=== PATIENT | male | born 1985 | race Caucasian/White ===

== ENCOUNTER 2016-12-15 09:15 | Emergency (ER) | payer SELFPAY ==
[2016-12-15 09:26] VITALS: TEMP 98.6; BMI 27.2
[2016-12-15] MEDS ORDERED: METHYLPREDNISOLONE 125 MG/2 ML VIAL IM ONE (09:36)
[2016-12-15] MEDS ORDERED: Albuterol/Ipratropium Neb 3 ML NEB NEB ONE (09:36)
--- NOTE | 2016-12-15 10:05 | EDPRACDOC ---
- General Information Chief Complaint: Flu-Like Symptoms Stated Complaint: COUGH Time Seen by Provider: 12/15/16 09:27 Information Source: Patient Mode Of Arrival: Car Home Medications: Home Medications Acetaminophen with Codeine [TYLENOL WITH CODEINE; [employer] with Codeine] 5 ml PO Q4-6H PRN #120 ml 12/15/16 Albuterol Sulfate [Proventil Hfa] 1 - 2 puff INH Q4H PRN #1 each 12/15/16 Prednisone [Deltasone, Orasone] 2 tabs PO DAILY #20 tab 12/15/16 Allergies/Adverse Reactions: Allergies Allergy/AdvReac Type Severity Reaction Status Date / Time ceftriaxone sodium Allergy Unknown Verified 12/15/16 09:26 [From Rocephin] - History of Present Illness Symptoms Started: 2 WEEKS HPI: PT PRESENTS TODAY WITH COUGH/CONGESTION, SHOB, POST-TUSSIVE VOMITING X 2 WEEKS. NO FEVER. PMH OF ASTHMA, BUT DOES NOT USE INHALER AND CONTINUES TO SMOKE. NO APPARENT DISTRESS. Symptoms: Reports: Cough, Nasal Symptoms, Vomiting Recent Medications: Reports: None Relevant History Of: Reports: Asthma Shortness of Breath: Moderate Cough Frequency: Persistent Cough Description: Reports: Productive, Strong, Congested Ear Symptoms: Reports: None Associated Signs and Symptoms: Reports: Cough, Nasal Symptoms, Vomiting ED Past Medical History - History Reviewed Yes Nurses notes reviewed and agree except as marked - Patient Medical History Respiratory History: Reports: Asthma (reports childhood asthma that has resolved ) Psychological History: Denies: Depression Systemic History: Denies: Cancer - Social Medical History Smoking Status: Heavy tobacco smoker (5 or more cigarettes/day or daily pipe/ cigar) EDM Review of Systems - Review of Systems ROS Negative Except as Marked: Yes All systems reviewed and were negative except as marked Constitutional: No Symptoms Reported Ears: No Symptoms Reported Throat: No Symptoms Reported Nose: Congestion Respiratory: Cough, Shortness of Breath, Wheezing Cardiovascular: No Symptoms Reported Gastrointestinal: Vomiting Genitourinary: No Symptoms Reported Neurological: No Symptoms Reported Musculoskeletal: Chestwall (PAIN D/T COUGHING) Integumentary: No Symptoms Reported - Physical Exam Constitutional: Alert (Awake), No apparent distress Oriented to: Time, Person, Place Last recorded Vital Signs: Last Vital Signs Temp 98.6 F 12/15/16 09:24 Pulse 80 01/21/17 09:24 Resp 20 12/15/16 09:24 BP 138/69 12/15/16 09:24 Pulse Ox 98 12/15/16 09:24 Oxygen Pulse Oxygen Saturation 98 O2 Device Room Air Oxygen Flow Rate Fraction of Inspired Oxygen ( FIO2) - HEENT Head: Normal Eye Exam: Normal Oropharynx: Normal Tympanic Membrane: Normal ENT EAC: Normal Nose: Congestion Neck: Normal, Denies Pain, Midline - Respiratory/Cardiovascular Respiratory: Wheezes (MODERATE, DIFFUSE) Cardiovascular: Normal - GI Palpation: Normal Tenderness: Non tender - Musculoskeletal Back: Normal Extremities: Normal - Integumentary Skin: Normal Lymphatics: Normal - Neurologic Cerebellar: Normal Mood Description: Normal Thought: Coherent Perception: Normal Decision Time to Discharge: 10:45 - Departure Disposition: Home Condition: Improved Final Diagnosis: Acute bronchitis Instructions: Acute Bronchitis (ED) Education/Counseling Given To: Patient, Family Member Education/Counseling Given Regarding: Diagnosis, Treatment, Follow Up Referrals: None,No Provider [Primary Care Provider] - One Week [facility]NonStaff] - One Week Prescriptions: Acetaminophen with Codeine [TYLENOL WITH CODEINE; [employer] with Codeine] 5 ml PO Q4-6H PRN #120 ml PRN Reason: Pain Albuterol Sulfate [Proventil Hfa] 1 - 2 puff INH Q4H PRN #1 each PRN Reason: Shortness Of Breath Prednisone [Deltasone, Orasone] 2 tabs PO DAILY #20 tab Forms: Excuse Note Additional Instructions: IBUPROFEN FOR ADDITIONAL PAIN RELIEF. PLEASE STOP SMOKING, THIS CAN CAUSE YOUR ASTHMA TO BE MUCH WORSE OVER TIME.
--- NOTE | 2016-12-15 10:28 | DIRPT ---
CLINICAL DATA: Cough and congestion for 2-3 weeks. EXAM: CHEST 2 VIEW COMPARISON: Chest x-ray dated 06/26/2015 FINDINGS: Cardiomediastinal silhouette is normal in size and configuration. Lungs are clear. Lung volumes are normal. No evidence of pneumonia. No pleural effusion. No pneumothorax. Osseous and soft tissue structures about the chest are unremarkable. IMPRESSION: Normal chest x-ray Electronically Signed By: Samson Rodas M.D. On: 12/15/2016 10:26
[2016-12-15 11:05] VITALS: BP 120/59; PULSE 85
== END 2016-12-15 10:55 | disposition home or self-care (01) ==
LOC: ED 09:15
DX: J20.9 Acute bronchitis, unspecified (principal)
CPT/HCPCS: 71020; 94640; 96372; 99283; J2930; J7620